=== PATIENT | male | born 1970 | race Caucasian/White ===

== ENCOUNTER → 2018-09-25 12:43 | Outpatient (CLI) | payer BC, SELFPAY ==
--- NOTE | 2018-09-25 12:50 | XR_ITS ---
XR ankle LT min 3V HISTORY: ITS.REASON: Lt ankle pain ORDERING PHYSICIAN: Bonnie Garcia MD PATIENT AGE: 48 years Comparison: 04/15/2014 FINDINGS: No acute fracture or dislocation. No lytic or blastic change. There is normal mineralization.. The joint spaces are well-preserved. No significant degenerative/arthritic changes. No erosive changes evident. There is a small calcific density along the lateral aspect of the lower talus at the talocalcaneal junction on the mortise view. This was present on 04/15/2014 and could represent an old avulsion injury or an accessory ossification center. IMPRESSION: No change with no acute finding
== END ==
PROVIDERS: PCP Family Medicine; Visit Provider Orthopaedic Surgery
DX: M25.572 Pain in left ankle and joints of left foot (principal)
CPT/HCPCS: 73610

== ENCOUNTER 2018-09-25 14:25 | Outpatient (RCR) | payer BC, SELFPAY | END 2018-09-25 14:30 | disposition home or self-care (01) | LOC: PT 14:25 | PROVIDERS: Visit Provider Orthopaedic Surgery | DX: M25.572 Pain in left ankle and joints of left foot (principal) ==

== ENCOUNTER → 2018-12-24 13:46 | Outpatient (POV) | payer BC, SELFPAY | PROVIDERS: Visit Provider Dermatology | DX: Z00.00 Encounter for general adult medical examination without abnormal findings (principal) ==

== ENCOUNTER → 2019-03-05 12:53 | Outpatient (CLI) | payer BC, SELFPAY ==
--- NOTE | 2019-03-05 12:55 | MR_ITS ---
MR knee RT wo con HISTORY: Twisting injury with pain and popping always ITS.REASON: right knee pain ORDERING PHYSICIAN: Bonnie Garcia MD PATIENT AGE: 48 years Comparison: 02/13/2019 TECHNIQUE: Standard multiplanar multiecho sequences are performed without contrast. FINDINGS: Posterior cruciate ligament is intact. There is sparsity of the fibers of the ACL with some increased T2 signal which could represent sprain of the ACL. There is slight edema involving the medial collateral ligament suggesting a grade 1 sprain. No evidence of medial or lateral collateral ligament tear. The patellar tendon and quadriceps tendon are intact. No meniscal tear.. The patellar cartilage is well preserved. There is decreased T1 and increased T2 signal involving the proximal aspect of the tibia medially and posteriorly as well as the anterior aspect of the proximal tibia medially consistent with bone marrow edema/bone bruise. Along the proximal tibia medially in the subarticular region there is a rounded area measuring 8 mm of decreased T1 signal with slight increased T2 signal at this region. This is well-circumscribed and may represent an area of osteochondrosis. Small area of bone marrow edema involves the medial femoral condyle centrally fairly well-circumscribed and may represent an additional area of osteochondrosis. There are mild osteoarthritic changes of the knee including the medial and lateral compartments and patellofemoral joint. There is also a small knee joint effusion. IMPRESSION: 1. Grade 1 sprain of the medial collateral ligament. 2. Sparsity of the fibers of the ACL with some increased T2 signal which may represent a sprain of the ACL. A complete tear is not present. 3. Contusion involves the proximal tibia medially and posteriorly. 4. Small areas of abnormal signal intensity of the medial femoral condyle and the medial aspect of the proximal tibia anteriorly suggesting areas of osteochondrosis. 5. Osteoarthritis with knee joint effusion
== END ==
PROVIDERS: PCP Family Medicine; Visit Provider Orthopaedic Surgery
DX: M25.562 Pain in left knee (principal)
CPT/HCPCS: 73721

== ENCOUNTER → 2019-04-30 06:57 | Outpatient (CLI) | payer BC, SELFPAY ==
[2019-04-30 09:43] LABS: Alanine Aminotransferase 32 U/L (12-78); Albumin/Globulin Ratio 1.5 (1.1-1.8); Alkaline Phosphatase 59 U/L (46-116); Anion Gap 11.3 mEq/L (5-15); Aspartate Amino Transferase 20 U/L (15-37); Bilirubin,Total 0.6 mg/dL (0.2-1.0); Blood Urea Nitrogen 16 mg/dL (7-18); Calcium 9.3 mg/dL (8.5-10.1); Carbon Dioxide 29 mmol/L (21.0-32.0); Chloride 104 mmol/L (98-107); Chol/HDL Ratio 3.6 (1-3.5); Cholesterol 191 mg/dL (140-200); Creatinine,Serum 1.18 mg/dL (0.70-1.30); Estimated Glomerular Filt Rate 66 ml/min (>60); GFR (African American) 80 ML/MIN (>60); Globulin 2.7 gm/dl (1.3-3.2); Glucose 101 mg/dL (74-106); HDL Cholesterol 53 mg/dL (27-67); LDL Cholesterol 120 mg/dL (0-130); Potassium 4.3 mmoL/L (3.5-5.1); Prostate Specific Ag Screen 0.6 ng/mL (0.0-4.0); Sodium 140 mmol/L (136-145); Total Protein,Serum 6.7 gm/dL (6.4-8.2); Triglycerides 91 mg/dL (30-200); VLDL Cholesterol 18 mg/dL (0-40)
== END ==
PROVIDERS: Visit Provider Family Medicine
DX: E78.5 Hyperlipidemia, unspecified (principal); I10 Essential (primary) hypertension; Z12.5 Encounter for screening for malignant neoplasm of prostate
CPT/HCPCS: 36415; 80053; 80061; G0103

== ENCOUNTER → 2019-07-03 11:35 | Outpatient (CLI) | payer BC, SELFPAY ==
[2019-07-03 15:25] LABS: Alanine Aminotransferase 32 U/L (12-78); Alkaline Phosphatase 69 U/L (46-116); Aspartate Amino Transferase 20 U/L (15-37); Bilirubin,Direct 0.1 mg/dL (0.0-0.2); Bilirubin,Indirect 0.4 mg/dL (0.0-0.9); Bilirubin,Total 0.5 mg/dL (0.2-1.0)
== END ==
PROVIDERS: Visit Provider Physician Assistant
DX: R74.8 Abnormal levels of other serum enzymes (principal)
CPT/HCPCS: 36415; 80076

== ENCOUNTER → 2020-03-12 13:30 | Outpatient (CLI) | payer BC, SELFPAY ==
--- NOTE | 2020-03-12 13:31 | XR_ITS ---
PROCEDURE: XR FOREARM RT 2V CLINICAL INDICATION: Forarm pain COMPARISON: No exams were available for comparison FINDINGS: No fracture or dislocation. No lytic or blastic change. There is normal mineralization. The joint spaces are well-preserved. No significant degenerative/arthritic changes. No erosive changes evident. Other findings:None. IMPRESSION: No acute findings. Dictated by: Adam Morales MD 03/12/2020 14:32 Electronically signed by Adam Morales MD in [place] 03/12/2020 14:32
--- NOTE | 2020-03-12 13:31 | XR_ITS ---
PROCEDURE: XR ELBOW RT MIN 3V CLINICAL INDICATION: elbow pain COMPARISON: No exams were available for comparison FINDINGS: No fracture or dislocation. No lytic or blastic change. There is normal mineralization. There are mild osteoarthritic changes at the proximal radial ulnar joint with osteophytes noted at this region. There is also minimal osteoarthritic changes of the radial head/capitellum junction. Other findings:None. IMPRESSION: Mild osteoarthritic changes Dictated by: Adam Morales MD 03/12/2020 14:36 Electronically signed by Adam Morales MD in [place] 03/12/2020 14:36
== END ==
PROVIDERS: PCP Family Medicine; Visit Provider Orthopaedic Surgery
DX: M25.521 Pain in right elbow (principal); M79.631 Pain in right forearm
CPT/HCPCS: 73080; 73090

== ENCOUNTER → 2020-08-17 14:21 | Outpatient (POV) | payer BC, SELFPAY | PROVIDERS: Visit Provider Dermatology | DX: Z00.00 Encounter for general adult medical examination without abnormal findings (principal) ==

== ENCOUNTER → 2020-10-07 17:50 | Outpatient (CLI) | payer BC, SELFPAY | PROVIDERS: PCP Family Medicine; Visit Provider Family Medicine | DX: Z20.822 Contact with and (suspected) exposure to COVID-19 (principal) | CPT/HCPCS: U0003 ==

== ENCOUNTER 2021-01-12 09:00 | Emergency (ER) | payer BC, SELFPAY ==
[2021-01-12 09:09] VITALS: BP 137/89; PULSE 84; RESP 19; TEMP 37; O2SAT 100; BMI 27.8
[2021-01-12 09:18] VITALS: BP 137/89; PULSE 86; RESP 19; TEMP 37; O2SAT 100
--- NOTE | 2021-01-12 09:38 | HMH.EDUTC ---
[facility] Disposition Clinical Impression: Viral syndrome Disposition: Home, Self-Care Condition on Discharge: Good Instructions: Preventing the Spread of Coronavirus Discharge Instructions Additional Instructions: Drink plenty of fluids. Take tylenol for pain or fever. Return if you begin to have difficulty breathing. Follow up with your regular doctor. GO TO THE ER FOR ANY WORSENING SYMPTOMS Prescriptions: Ondansetron [Zofran 4mg ODT] 4 mg PO Q8HP PRN #20 tab.rapdis PRN Reason: Nausea Transmission Status: Received by [facility] Referrals: Steve Pepper MD [Primary Care Provider] - Time of Disposition: 09:39 Medical Decision Making - Medical Records Medical records reviewed: No: I reviewed the patient's medical records. - Nick Inquiry Pt receiving controlled substance: No Vital Signs: 01/12/21 09:09 01/12/21 09:18 Temperature 98.6 F 98.6 F Temperature Source Oral Pulse Rate 86 Pulse Rate [Left] 84 Respiratory Rate 19 19 Blood Pressure 137/89 Blood Pressure [Right Arm] 137/89 Blood Pressure Mean [Right Arm] 105 02 Sat by Pulse Oximetry 100 Oxygen Delivery Method Room Air [facility] HPI - General Stated complaint: covid test, symptoms Time Seen by Provider: 01/12/21 09:25 Mode of Arrival: Ambulatory Source of Information: Patient Limitations: No Limitations Description of Symptoms (Recalled from Triage Doc. by RN): Covid test-chills, headache, bodyaches HEENT Symptoms (Recalled from RN notes): No Resp Symptoms (Recalled from RN notes): Yes Skin Symptoms (Recalled from RN notes): No MS Symptoms (Recalled from RN notes): No Functional Status (Recalled from RN notes): wnl - History of Present Illness Provider Complaint: He states that he has had chilling and body aches for the past 1 day. He wants to be tested for covid-19. - Related Data Home Medications Medication Instructions Recorded Confirmed losartan 25 mg tablet 25 mg PO ONCE 03/17/18 03/12/20 Previous Rx's Medication Instructions Recorded Ondansetron [Zofran 4mg ODT] 4 mg PO Q8HP PRN #20 tab.rapdis 01/12/21 Allergies Allergy/AdvReac Type Severity Reaction Status Date / Time No Known Allergies Allergy Verified 01/12/21 09:18 - Worker's Comp Is this a Worker's Comp case?: No H History - Hepatitis A Screen Drug use history?: No High risk sexual behaviors?: No History of sexually transmitted infection?: No Currently employed?: No Childcare worker?: No Do you have indoor plumbing?: Yes Do you have electricity?: Yes Attestation statement:: This patient has been screened for Hepatitis A risk factors. I have reviewed the patient's past medical history: Yes Medical History: Reports:: Hypertension Other Surgeries: Yes: Other Amputation: No Fractures: No Comment: ankle reconstruction - Social History Smoking Status: Never smoker Tobacco Type: cigarettes Alcohol Intake: never Alcohol Intake Frequency:: holidays/special occasions only Occupational Status: other Family Hx:: No significant family history ROS Obtained: Yes All systems reviewed & no additional complaints - Constitutional Constitutional: Reports as per HPI - Eyes Eyes: Denies eye discharge - ENT Ears, Nose, Mouth, and Throat: Reports as per HPI - Cardiovascular Cardiovascular: Denies chest pain - Respiratory Respiratory: Denies chest congestion, Reports cough, Denies dyspnea, Denies stridor, Denies wheezing Physical Exam - General General appearance: alert, in no apparent distress - Head Head exam: atraumatic, normocephalic, normal inspection - Eye Eye exam: Present: normal appearance, PERRL, EOMI - ENT ENT exam: Present: normal exam, normal oropharynx, mucous membranes moist, TM's normal bilaterally, normal external ear exam - Neck Neck exam: Present: normal inspection, full ROM, trachea midline. Absent: meningismus, lymphadenopathy - Chest Chest inspection: P
== END 2021-01-12 09:40 | disposition home or self-care (01) ==
PROVIDERS: Emergency Provider Nurse Practitioner Family; PCP Family Medicine
DX: Z20.822 Contact with and (suspected) exposure to COVID-19 (principal); B34.9 Viral infection, unspecified; I10 Essential (primary) hypertension
CPT/HCPCS: 99202; G0463; U0003

== ENCOUNTER → 2021-06-14 08:19 | Outpatient (CLI) | payer BC, SELFPAY | PROVIDERS: PCP Family Medicine; Visit Provider Nurse Practitioner | DX: Z20.822 Contact with and (suspected) exposure to COVID-19 (principal) | CPT/HCPCS: C9803; U0003; U0005 ==

== ENCOUNTER → 2021-06-24 07:18 | Outpatient (CLI) | payer BC, SELFPAY ==
[2021-06-24 07:32] LABS: Basophils % 0.8 % (0.1-2.0); Eosinophils # 0.4 K/mm3 (0.0-0.4); Eosinophils % 8.2 % (0.1-12.0); Hematocrit 46.1 % (42.0-52.0); Hemoglobin 15.4 g/dL (14.1-18.0); Lymphocytes # 1.5 K/mm3 (0.7-4.5); Lymphocytes % 32.3 % (10-50); Mean Corpuscular HGB Conc 33.3 g/dL (31.8-35.4); Mean Corpuscular Hemoglobin 32.2 pg (27.0-31.2); Mean Corpuscular Volume 96.5 fl (80-94); Monocytes # 0.3 K/mm3 (0.1-1.0); Monocytes % 6.3 % (1.7-9.3); Neutrophils # 2.4 K/mm3 (1.8-7.8); Neutrophils % 52.4 % (37.0-80.0); Platelet Count 310 K/mm3 (142-424); Red Blood Count 4.78 M/mm3 (4.60-6.20); Red Cell Distribution Width 12.4 % (11.5-17.5); White Blood Count 4.6 K/mm3 (4.8-10.8)
[2021-06-24 07:53] LABS: Chloride 104 mmol/L (98-107); Potassium 4.4 mmoL/L (3.5-5.1); Sodium 139 mmol/L (136-145)
[2021-06-24 07:56] LABS: Alanine Aminotransferase 25 U/L (12-78); Albumin Level 4.3 g/dl (3.5-5.0); Albumin/Globulin Ratio 1.7 (1.1-1.8); Alkaline Phosphatase 53 U/L (38-126); Anion Gap 11.4 mEq/L (5-15); Aspartate Amino Transferase 33 U/L (17-59); Bilirubin,Total 0.4 mg/dl (0.2-1.3); Blood Urea Nitrogen 17 mg/dl (9-20); Calcium 9.3 mg/dl (8.4-10.2); Carbon Dioxide 28 mmol/L (22.0-30.0); Chol/HDL Ratio 3.3 (1-3.5); Cholesterol 213 mg/dl (140-200); Estimated Glomerular Filt Rate 90 ml/min (>60); GFR (African American) 109 ML/MIN (>60); Globulin 2.5 g/dL (1.3-3.2); Glucose 114 mg/dl (74-100); HDL Cholesterol 64 mg/dl (40-60); Total Protein,Serum 6.8 g/dl (6.3-8.2); Triglycerides 72 mg/dl (30-150); VLDL Cholesterol 14 mg/dL (0-40)
[2021-06-24 08:07] LABS: Direct LDL Cholesterol 109.67 mg/dL (100-129)
== END ==
PROVIDERS: Visit Provider Family Medicine
DX: I10 Essential (primary) hypertension (principal); E78.5 Hyperlipidemia, unspecified
CPT/HCPCS: 36415; 80053; 80061; 85025

== ENCOUNTER → 2021-08-30 13:35 | Outpatient (CLI) | payer BC, SELFPAY | PROVIDERS: PCP Family Medicine; Visit Provider Nurse Practitioner | DX: Z20.822 Contact with and (suspected) exposure to COVID-19 (principal) | CPT/HCPCS: C9803; U0003; U0005 ==

== ENCOUNTER → 2021-10-19 07:59 | Outpatient (CLI) | payer BC, SELFPAY ==
[2021-10-20 06:46] LABS: Covid-19 Nasal PCR Sendout Lex NOT DETECTED
== END ==
PROVIDERS: PCP Family Medicine; Visit Provider Nurse Practitioner
DX: Z20.822 Contact with and (suspected) exposure to COVID-19 (principal)
CPT/HCPCS: C9803; U0004; U0005

== ENCOUNTER 2021-11-01 08:00 | Outpatient (RCR) | payer BC, SELFPAY | END 2021-11-01 08:05 | disposition home or self-care (01) | LOC: PT 08:00 | PROVIDERS: PCP Family Medicine; Visit Provider Orthopaedic Surgery Sports Medicine | DX: M19.021 Primary osteoarthritis, right elbow (principal) | CPT/HCPCS: 97035; 97110; 97140; 97163 ==

== ENCOUNTER → 2022-06-06 13:08 | Outpatient (POV) | payer BC, SELFPAY | PROVIDERS: Visit Provider Dermatology | DX: Z00.00 Encounter for general adult medical examination without abnormal findings (principal) ==

== ENCOUNTER → 2022-08-07 07:28 | Outpatient (CLI) | payer BC, SELFPAY ==
[2022-08-07 08:21] LABS: Basophils # 0.1 K/mm3 (0-0.2); Basophils % 1.2 % (0.1-2.0); Eosinophils # 0.5 K/mm3 (0.0-0.4); Eosinophils % 8.6 % (0.1-12.0); Hematocrit 46.7 % (42.0-52.0); Hemoglobin 15.3 g/dL (14.1-18.0); Lymphocytes # 1.6 K/mm3 (0.7-4.5); Lymphocytes % 31.3 % (10-50); Mean Corpuscular HGB Conc 32.9 g/dL (31.8-35.4); Mean Corpuscular Hemoglobin 31.3 pg (27.0-31.2); Mean Corpuscular Volume 95.1 fl (80-94); Mean Platelet Volume 7.8 fl (7.4-10.4); Monocytes # 0.3 K/mm3 (0.1-1.0); Monocytes % 5.2 % (1.7-9.3); Neutrophils # 2.8 K/mm3 (1.8-7.8); Neutrophils % 53.8 % (37.0-80.0); Platelet Count 307 K/mm3 (142-424); Red Cell Distribution Width 12.8 % (11.5-17.5); White Blood Count 5.2 K/mm3 (4.8-10.8)
[2022-08-07 09:33] LABS: Alanine Aminotransferase 27 U/L (12-78); Albumin Level 4.6 g/dl (3.5-5.0); Albumin/Globulin Ratio 1.9 (1.1-1.8); Alkaline Phosphatase 47 U/L (38-126); Anion Gap 9.8 mEq/L (5-15); Aspartate Amino Transferase 34 U/L (17-59); Bilirubin,Total 0.4 mg/dl (0.2-1.3); Blood Urea Nitrogen 32 mg/dl (9-20); Calcium 9.7 mg/dl (8.4-10.2); Carbon Dioxide 29 mmol/L (22.0-30.0); Chloride 103 mmol/L (98-107); Chol/HDL Ratio 3.6 (1-3.5); Cholesterol 222 mg/dl (140-200); Estimated Glomerular Filt Rate 64 ml/min (>60); GFR (African American) 78 ML/MIN (>60); Globulin 2.4 g/dL (1.3-3.2); Glucose 103 mg/dl (74-100); HDL Cholesterol 62 mg/dl (40-60); Potassium 4.8 mmoL/L (3.5-5.1); Sodium 137 mmol/L (136-145); Triglycerides 75 mg/dl (30-150); VLDL Cholesterol 15 mg/dL (0-40)
[2022-08-07 09:44] LABS: Direct LDL Cholesterol 131.14 mg/dL (100-129)
[2022-08-07 10:04] LABS: Prostate Specific Ag Screen 0.7 ng/ml (0.0-4.0)
== END ==
PROVIDERS: PCP Family Medicine; Visit Provider Family Medicine
DX: I10 Essential (primary) hypertension (principal); E78.5 Hyperlipidemia, unspecified; Z12.5 Encounter for screening for malignant neoplasm of prostate
CPT/HCPCS: 36415; 80053; 80061; 85025; G0103

== ENCOUNTER → 2022-11-06 15:38 | Outpatient (CLI) | payer BC, SELFPAY ==
--- NOTE | 2022-11-06 15:43 | XR_ITS ---
PROCEDURE INFORMATION: Exam: XR Left Foot Complete; Alignment Exam date and time: 11/06/2022 4:11 PM Age: 52 years old Clinical indication: Pain; Left; Prior surgery; Surgery date: 6+ months; Surgery type: Foot and ankle surgery 2014; Additional info: Ankle pain TECHNIQUE: Imaging protocol: Radiologic exam of the left foot. Views: 3 or more views. COMPARISON: CR ANKCMLT XR ankle LT min 3V 09/25/2018 1:13 PM FINDINGS: Bones/joints: No acute fracture or dislocation. Joint spaces fairly well preserved. No erosive changes. Soft tissues: Normal. IMPRESSION: No acute osseous abnormality.
--- NOTE | 2022-11-06 15:43 | XR_ITS ---
PROCEDURE INFORMATION: Exam: XR Left Ankle Exam date and time: 11/06/2022 4:11 PM Age: 52 years old Clinical indication: Pain; Left; Prior surgery; Surgery date: 6+ months; Surgery type: Foot and ankle surgery 2014; Additional info: Ankle pain TECHNIQUE: Imaging protocol: Radiologic exam of the left ankle. Views: 3 or more views. COMPARISON: CR ANKCMLT XR ankle LT min 3V 09/25/2018 1:13 PM FINDINGS: Bones/joints: No acute fracture or malalignment. Ankle mortise is intact. Joint spaces are preserved. No erosive changes. Small plantar calcaneal enthesophyte. Soft tissues: Unremarkable. IMPRESSION: No acute osseous abnormality.
== END ==
PROVIDERS: PCP Family Medicine; Visit Provider Podiatrist
DX: M25.572 Pain in left ankle and joints of left foot (principal)
CPT/HCPCS: 73610; 73630

== ENCOUNTER → 2023-06-27 08:47 | Outpatient (CLI) | payer BC, SELFPAY ==
[2023-06-27 09:18] LABS: Basophils % 0.7 % (0.1-2.0); Eosinophils # 0.3 K/mm3 (0.0-0.4); Eosinophils % 7.2 % (0.1-12.0); Hemoglobin 15.2 g/dL (14.1-18.0); Lymphocytes # 1.6 K/mm3 (0.7-4.5); Mean Corpuscular HGB Conc 35.2 g/dL (31.8-35.4); Mean Corpuscular Volume 96.5 fl (80-94); Mean Platelet Volume 7.8 fl (7.4-10.4); Monocytes # 0.2 K/mm3 (0.1-1.0); Monocytes % 4.9 % (1.7-9.3); Neutrophils # 2.5 K/mm3 (1.8-7.8); Neutrophils % 53.1 % (37.0-80.0); Platelet Count 250 K/mm3 (142-424); Red Blood Count 4.45 M/mm3 (4.60-6.20); Red Cell Distribution Width 12.9 % (11.5-17.5); White Blood Count 4.7 K/mm3 (4.8-10.8)
[2023-06-27 09:42] LABS: Alanine Aminotransferase 28 U/L (12-78); Albumin Level 4.6 g/dl (3.5-5.0); Albumin/Globulin Ratio 1.8 (1.1-1.8); Alkaline Phosphatase 41 U/L (38-126); Anion Gap 13.9 mEq/L (5-15); Aspartate Amino Transferase 35 U/L (17-59); Bilirubin,Total 0.6 mg/dl (0.2-1.3); Blood Urea Nitrogen 26 mg/dl (9-20); Calcium 9.4 mg/dl (8.4-10.2); Carbon Dioxide 26 mmol/L (22.0-30.0); Chloride 103 mmol/L (98-107); Chol/HDL Ratio 2.9 (1-3.5); Cholesterol 224 mg/dl (140-200); Estimated Glomerular Filt Rate 64 ml/min (>60); GFR (African American) 78 ML/MIN (>60); Globulin 2.5 g/dL (1.3-3.2); Glucose 107 mg/dl (74-100); HDL Cholesterol 77 mg/dl (40-60); Potassium 4.9 mmoL/L (3.5-5.1); Sodium 138 mmol/L (136-145); Total Protein,Serum 7.1 g/dl (6.3-8.2); Triglycerides 79 mg/dl (30-150); VLDL Cholesterol 16 mg/dL (0-40)
[2023-06-27 09:53] LABS: Direct LDL Cholesterol 115.18 mg/dL (100-129)
== END ==
PROVIDERS: PCP Family Medicine; Visit Provider Family Medicine
DX: I10 Essential (primary) hypertension (principal); E78.5 Hyperlipidemia, unspecified
CPT/HCPCS: 36415; 80053; 80061; 85025

== ENCOUNTER 2023-12-11 14:53 | Outpatient (POV) | payer BC, SELFPAY | END 2023-12-11 23:59 | disposition home or self-care (01) | LOC: SC 14:53 | PROVIDERS: PCP Family Medicine; Visit Provider Dermatology | DX: Z00.00 Encounter for general adult medical examination without abnormal findings (principal) ==

== ENCOUNTER 2024-04-21 11:04 | Outpatient (CLI) | payer OTHER, SELFPAY ==
--- NOTE | 2024-04-21 11:10 | XR_ITS ---
FINAL REPORT CLINICAL HISTORY: ARTHRITIS - surgery on elbow x 2 years ago -- patient unable to bend elbow any further than visualized on lateral view. FINDINGS: 2 views of the right elbow were obtained. There is no acute fracture or dislocation. There is moderate joint space narrowing of the medial and lateral joint spaces. There are mild hypertrophic changes of the medial joint margin. There is no acute fracture or dislocation. Soft tissues are unremarkable. IMPRESSION: Degenerative changes without acute bony abnormality. Reviewed, Interpreted and Dictated by Giuseppe Boyce MD Transcribed by Carrie Kumar Authenticated and [facility]
== END 2024-04-21 23:59 | disposition home or self-care (01) ==
LOC: RAD 11:06
PROVIDERS: PCP Family Medicine; Visit Provider Chiropractor
DX: M13.80 Other specified arthritis, unspecified site (principal)
CPT/HCPCS: 73070

== ENCOUNTER 2024-08-18 07:22 | Outpatient (CLI) | payer BC, SELFPAY ==
[2024-08-18 07:49] LABS: Basophils # 0.1 K/mm3 (0-0.2); Basophils % 1.4 % (0.1-2.0); Eosinophils # 0.3 K/mm3 (0.0-0.4); Eosinophils % 6.5 % (0.1-12.0); Hematocrit 44.9 % (42.0-52.0); Hemoglobin 15.5 g/dL (14.1-18.0); Lymphocytes # 1.9 K/mm3 (0.7-4.5); Lymphocytes % 37.6 % (10-50); Mean Corpuscular HGB Conc 34.6 g/dL (31.8-35.4); Mean Corpuscular Hemoglobin 33.2 pg (27.0-31.2); Mean Corpuscular Volume 96.1 fl (80-94); Mean Platelet Volume 7.4 fl (7.4-10.4); Monocytes # 0.4 K/mm3 (0.1-1.0); Monocytes % 8.6 % (1.7-9.3); Neutrophils # 2.3 K/mm3 (1.8-7.8); Platelet Count 275 K/mm3 (142-424); Red Blood Count 4.67 M/mm3 (4.60-6.20); Red Cell Distribution Width 12.9 % (11.5-17.5); White Blood Count 4.9 K/mm3 (4.8-10.8)
[2024-08-18 08:23] LABS: Albumin Level 4.7 g/dl (3.5-5.0); Chloride 104 mmol/L (98-107); Sodium 134 mmol/L (136-145)
[2024-08-18 08:24] LABS: Potassium 4.4 mmoL/L (3.5-5.1)
[2024-08-18 08:26] LABS: Alanine Aminotransferase 26 U/L (12-78); Anion Gap 5.4 mEq/L (5-15); Aspartate Amino Transferase 34 U/L (17-59); Blood Urea Nitrogen 26 mg/dl (9-20); Carbon Dioxide 29 mmol/L (22.0-30.0); Estimated Glomerular Filt Rate 64 ml/min (>60); GFR (African American) 77 ML/MIN (>60)
[2024-08-18 08:27] LABS: Albumin/Globulin Ratio 2.2 (1.1-1.8); Alkaline Phosphatase 41 U/L (38-126); Bilirubin,Total 0.6 mg/dl (0.2-1.3); Calcium 9.6 mg/dl (8.4-10.2); Cholesterol 236 mg/dl (140-200); Globulin 2.1 g/dL (1.3-3.2); Glucose 105 mg/dl (74-100); HDL Cholesterol 78 mg/dl (40-60); Total Protein,Serum 6.8 g/dl (6.3-8.2); Triglycerides 123 mg/dl (30-150); VLDL Cholesterol 25 mg/dL (0-40)
[2024-08-18 08:38] LABS: Direct LDL Cholesterol 113.78 mg/dL (100-129)
[2024-08-18 10:12] LABS: Prostate Specific Ag Screen 0.8 ng/ml (0.0-4.0)
[2024-08-29 19:40] LABS: Testosterone, Total, LC/MS 786 ng/dL (.)
== END 2024-08-18 23:59 | disposition home or self-care (01) ==
PROVIDERS: PCP Family Medicine; Visit Provider Family Medicine
DX: E78.5 Hyperlipidemia, unspecified (principal); Z12.5 Encounter for screening for malignant neoplasm of prostate; I10 Essential (primary) hypertension
CPT/HCPCS: 36415; 80053; 80061; 84403; 85025; G0103

== ENCOUNTER 2024-10-08 06:56 | Outpatient (CLI) | payer SELFPAY ==
--- NOTE | 2024-10-08 07:04 | CT_ITS ---
APPROVED REPORT Forcer Maker: CLINICAL INDICATION Risk stratification TECHNIQUE Image Acquisition: A 128 slice MDCT scanner (MemfoACTa View) was used for data acquisition. A noncontrast coronary calcium scan was performed. A CT attenuation threshold of 130 Hounsfield units (HU) was used for the detection of calcium in contiguous voxels of 1 sq mm in area to be counted as individual lesions. A tube voltage of 120 KVp was used. The patient received no medications prior to the coronary calcium CT. Image Reconstruction Transaxial images were reconstructed at 0.67 mm slide thickness. Data was reviewed interactively on an advanced workstation capable of 2 and 3-dimensional displays in all conventional reconstruction formats, including multiplanar reformations, maximum intensity projections, curved multiplanar reformations, and volume rendered reconstructions. When applicable, selected routine images describing the relevant coronary anatomy and pathology were saved and sent to PACS. Complications None Technical Quality Overall image quality was good. Total DLP (Dose-Length Product) is 161.9 mGy-cm. The reported value represents the total of one or more individual components during the CT acquisition of this date and at this time, and as such, the same value may appear in more than one CT report depending on the interpreting/reporting physicians. COMPARISON None FINDINGS CT Coronary Calcium Scoring LMA (Left Main Artery) = 0 LAD (Left Anterior Descending) = 32 LCX (Left Coronary Circumflex) = 0 RCA (Right Coronary Artery) = 0 Total Calcium Score = 32 using the AJ-130 method. There is no identifiable calcification in the aortic valve, mitral annulus or mitral valve, pericardium, or myocardium. IMPRESSION -Coronary artery calcification is present. -Total Calcium Score (Agatston Score) = 32 using the AJ-130 method. -The observed calcium score of 32 is at 73rd percentile for subjects of the same age, sex, and race/ethnicity. The interpretation of the calcium heart score is based on the following continuum*: 0 = no calcified plaque detected (risk of coronary artery disease is very low ??? less than 5%) 1-10 = calcium detected in extremely minimal levels (risk of coronary diseases is still low ??? less than 10%) 11-100 = mild levels of plaque detected with certainty (mild or minimal narrowing of heart arteries is likely) 101-400 = definite,at least moderate levels of plaque detected (relatively high risk of a heart attack within 3-5 years) >401-999 = extensive levels of plaque detected (high risk of heart attack, high levels of vascular disease are present, high likelihood of at least one significant coronary narrowing) *The calcium heart score quantifies the burden of coronary calcification/plaque in the coronary arteries. The calcium heart score does not evaluate the presence or the burden of non-calcified (i.e. soft) plaque. The coronary and cardiac findings of this Coronary Calcium CT were reviewed, reported, and signed by Ortiz Silva MD (Legal Billing Coordinator). Conclusion Electronically signed by : Shira Silva MD 10/08/2024 11:19:06
== END 2024-10-08 23:59 | disposition home or self-care (01) ==
LOC: RAD 06:57
PROVIDERS: PCP Family Medicine; Visit Provider Family Medicine
DX: I25.10 Atherosclerotic heart disease of native coronary artery without angina pectoris (principal); Z82.49 Family history of ischemic heart disease and other diseases of the circulatory system
CPT/HCPCS: 75571

== ENCOUNTER 2025-08-19 07:45 | Outpatient (CLI) | payer BC, SELFPAY ==
--- OUTSIDE RECORDS SUMMARY | 2024-07-01 08:45 | XMS_ITS ---
Author Organization [facility] Address [address] [place] [address] [address] [facility] [address] [place] [id number] Care Team Providers Care Medical Officer Psychiatry Name Role Phone Kelechi Preciado Primary Care Provider [phone] Amy Beasley [phone] REASON FOR VISIT check up Encounters Encounter Location Date Provider Diagnosis [facility] [address] [facility] [address] [facility] [address] [place] [id number] 07/01/2024 Amy Pepper Plan Of Treatment Next Appt Details Provider Name:Amy Vital, 08/20/2025 11:30:00 AM, [address] [facility] [address] [facility], [address], [place], [id number], Progress Notes * Adeel CARLSONnDOB:1969 (55 yo M)Acc No.[id number]:07/01/2024 Progress Notes Patient: Adeel CAMARENA Blaise Provider: Amy Pepper M.D. :1970 A ge:53 Y S ex:Male Date:07/01/2024 Address:[address] [place] [id number] Pcp:Kelechi Preciado Subjective: * Chief Complaints: * 1 . Check up. * Medical History: Objective: * Vitals: Assessment: Plan: * Treatment: * Images: Billing Information: * Visit Code: * Procedure Codes: * Electronic signature of Amy Pepper MD on 08/19/2025 at 07:48 AM EST Sign off status: Pending * Provider: Amy Pepper M.D. Date: 1 Generated for Olivia braga/Myra/Javier on: 1 10/20/2024 07:48 AM EST
--- OUTSIDE RECORDS SUMMARY | 2024-08-19 06:15 | XMS_ITS ---
[facility] Address [facility] [place] [id number] Care Team Providers Care Dining Room Maid Name Role Phone [place], Kelechi Primary Care Provider [phone] Amy Beasley [phone] Allergies No Known Allergies REASON FOR VISIT check up Medications Medication SIG (Take, Route, Frequency, Duration) Notes Start Date End Date Status Losartan Potassium 25 mg TAKE ONE TABLET BY MOUTH EVERY DAY; Duration: 90 Active Aspirin Adult Low Strength 81 MG 1 tab(s) orally once a day Not-Taking Vital Signs Blood pressure systolic 126 mm Hg 08/19/20 24 Blood pressure diastolic 78 mm Hg 024 Heart Rate 70 /min 08/19/2024 Height 71.50 in 08/19/2024 Weight 204.4 lbs 08/19/2024 BMI 28.11 kg/m2 08/19/2024 Encounters Encounter Location Date Provider Diagnosis [facility] [address] [place] [address] [place] [id number] 08/19/2024 Amy Pepper Essential hypertensi on I10 ; Dyslipidemia E78.5 and Fatigue R53.83 Assessments Encounter Date Diagnosis (ICD Code) Assessment Notes Treatment Notes Treatment Clinical Notes Section Notes 08/19/2024 Essential hypertension (ICD-10 - I10) 08/19/2024 Dyslipidemia (ICD-10 - E78.5) 08/19/2024 Fatigue (ICD-10 - R53.83) Awaiting results of testosterone Plan Of Treatment Medication Medication Name Sig Start Date Stop Date Notes Losartan Potassium 25 mg TAKE ONE TABLET BY MOUTH EVERY DAY; Duration: 90 Treatment Notes Assessment Notes Fatigue Awaiting results of testosterone Next Appt Details Follow Up: 6 Months, Reason: Provider Name:Amy Billings et, 08/20/2025 11:30:00 AM, [address], [address], [place], [place], [phone], Progress Notes * Adeel CARLSONOB:1969 (55 yo M)Acc No.[id number]:08/19/2024 Progress Notes Patient: Adeel CAMARENA Provider: Amy Pepper M.D. :1970 A ge:54 Y S ex:Male Date:08/19/2024 Address:[address] [place] [address] [place] [id number] Pcp:Kelechi Preciado Subjective: * Chief Complaints: * 1 . Check up. * HPI: C ardiology: Comes in for follow-up on his hypertension. He had recent labs for review. Testosterone levels ordered because of recent fatigue and results are pending. Blood pressure checks at home have been consistently normal. K cristofer/Nando: He has been following with [facility] for his chronic knee pain and recently underwent gel injections. He has not seen much benefit as well. * ROS: D ERMATOLOGY: no R yazmin. n o H alvaro. G ASTROENTEROLOGY: no N ausea. n o V omiting. n o D iarrhea.? U ROLOGY: no D ifficulty urinating. n o B lood in urine. * Medical History: H BP. * Surgical History: A ppendectomy 2003, Right Elbow Surgery 10/2021. * Hospitalization/Major Diagno stic Procedure: s ee above . * Family History: F ather: alive, [place], diagnosed with Hypertension, Heart Disease. M other: alive, diagnosed with Hypertension. 1 brother(s) , 1 sister(s) . 3 son(s) . . * Social History: C URRENT TOBACCO USE: No . C affeine: yes, frequency: coffee. Home smoke detector use: yes. Past smoking status: no, Smoking status: Does not smoke. Alcohol: Yes, Type: , Frequency: on occasion ,Years: , Determination:. Travel ouside [place]: yes. * Medications: T aking Losartan Potassium 25 mg Tablet TAKE ONE TABLET BY MOUTH EVERY DAY , Not- Taking Aspirin Adult Low Strength 81 MG Tablet Delayed Release 1 tab(s) orally once a day , Medication List reviewed and reconciled with the patient * Allergies: N .K.D.A. Objective: * Vitals: W t:204.4, Temp:98.4, BP:126/78, HR:70, Nurse:EVELINA, Ht: 71.50, BMI:28.11. * Examination: C ardiology: General Appearance: p leasant, NAD. H EENT: u nremarkable. C arotid upstroke: n ormal, no bruits. H eart sounds: R RR, normal S1, S2.?Murmur, click , gallop: n one. L ungs: c lear, no rales or wheezes. A bdomen: positive BS, soft, nontender. E xtremities: n o leg edema. N oted with small lipoma over thoracic spine and right lateral hip. * Physical Examination: L ABS: See labs r eviewed with patient, satisfactory. Assessment: * Assessment: 1. E ssential hypertension - I10 (Primary) 2 . D yslipidemia - E78.5 ? 3 . F atigue - R53.83 Plan: * Treatment: 2. F atigue Notes: Awaiting results of testosterone * Follow Up: 6 Months * Images: Billing Information: * Visit Code: 06747 Office Visit, Est Pt., Level 4. * Procedure Codes: * Electronic signature of Amy Pepper MD on 08/19/2025 at 07:48 AM EST Sign off status: Pending * Provider: Amy Pepper M.D. Date: 10/20/2023 Generated for Olivia braga/Myra/Javier on: 10/20/2024 07:48 AM EST History and Physical Notes * Physical Examination Category Sub-Category Detail Notes Section Note s LABS See labs reviewed with patient, [employer] factory Examination Category Sub-Category Detail Notes Category Not es Cardiology Lungs: clear, no rales or wheezes Noted with small lipoma over thoracic spine and right lateral hip HEENT: unremarkable Heart sounds: RRR, normal S1, S2 Abdomen: positive BS, soft, n ontender Carotid upstroke: normal, no bruits Extremities: no leg edema Murmur, click , gallop: none General Appearance: pleasant, NAD
--- OUTSIDE RECORDS SUMMARY | 2024-12-30 08:45 | XMS_ITS ---
Author Organization [facility] Address [address] [facility] [address] [place] [phone] Care Team Providers Care Rubber Liner Name Role Phone Kelechi Preciado Primary Care Provider [phone] Amy Beasley Unavailable [phone] Allergies No Known Allergies REASON FOR VISIT shot in knee Medications Medication SIG (Take, Route, Frequency, Duration) Notes Start Date End Date Status Losartan Potassium 50 MG 1 tablet Orally Once a day; Duration: 90 days 11/14/2024 Active Aspirin Adult Low Strength 81 MG 1 tab(s) orally once a day Not-Taking methylPREDNISolone 4 MG as directed Orally 025 Active Meloxicam 15 MG 1 tablet Orally Once a day; Duration: 30 day(s) 12/30/2024 Active Problems Problem Type SNOMED Code ICD Code Onset Dates Problem Status W/U Status Risk Notes Problem Osteoarthritis of knee (931801558) Primary osteoarthritis of left knee (M17.12) Active confirmed Vital Signs Blood pressure systolic 124 mm Hg 12/31/19 25 Blood pressure diastolic 68 mm Hg 025 Heart Rate 79 /min 12/30/2024 Height 71.50 in 12/30/2024 Weight 205.6 lbs 12/30/2024 BMI 28.27 kg/m2 12/30/2024 Encounters Encounter Location Date Provider Diagnosis [facility] [address] [facility] [address] [place] [phone] 12/30/2024 Amy Pepper Primary osteoarthrit is of left knee M17.12 and BMI 28.0-28.9,adult Z68.28 Assessments Encounter Date Diagnosis (ICD Code) Assessment Notes Treatment Notes Treatment Clinical Notes Section Notes 12/30/2024 Primary osteoarthritis of left knee (ICD-10 - M17.12) Keep Ortho follow-up appointment as scheduled in 12/30/2024 BMI 28.0-28.9,adult (ICD-10 - Z68.28) Plan Of Treatment Medication Medication Name Sig Start Date Stop Date Notes methylPREDNISolone 4 MG as directed Orally 12/30/2024 Meloxicam 15 MG 1 tablet Orally Once a day; Duration: 30 day(s) 12/30/2024 Treatment Notes Assessment Notes Primary osteoarthritis of left knee Keep Ortho follow-up appointment as scheduled in February Next Appt Details Follow Up: prn, Reason: Provider Name:Amy Vital, 08/20/2025 11:30:00 AM, [address], [address] , [place], [place], [phone], Progress Notes * Adeel CARLSONEthanOB:1969 (55 yo M)Acc No.[id number]:12/30/2024 Progress Notes Patient: Adeel CAMARENA Provider: Amy Pepper M.D. :1970 A ge:54 Y S ex:Male Date:12/30/2024 Address:[address] [place] [address] [place] [id number] Pcp:Kelechi Preciado Subjective: * Chief Complaints: * 1 . Shot in knee. * HPI: K nee/Collier: Blaise is known to have bilateral knee arthritis and follows at [facility] with gel injections about every 6 months. He is scheduled again in February however over the weekend, he began having more severe pain in his left knee with no history of trauma. He did cut some wood yesterday and was kneeling and bending. He has had some mild swelling. He notes occasional catching. No locking. * ROS: D ERMATOLOGY: no R yazmin. [...] . * Family History: F ather: alive, [place], diagnosed with Hypertension, Heart Disease. M other: [...] yes. * Medications: T aking Losartan Potassium 50 MG Tablet 1 tablet Orally Once a day , Not-Taking Aspirin Adult Low Strength 81 MG Tablet Delayed Release 1 tab(s) orally once a day , Medication List reviewed and reconciled with the patient * Allergies: N .K.D.A. Objective: * Vitals: W t: 205.6, Temp: 98.5, BP: 124/68, HR: 79, Nurse: dillon, Ht: 71.50, BMI:28.27. * Examination: G eneral Examination: General Appearance: N AD. E xtremities: L eft knee is tender medially. No obvious effusion, redness, or warmth. No instability.. Assessment: * Assessment: 1. P rimary osteoarthritis of left knee - M17.12 (Primary) 2 . B [place] 28.0-28.9,adult - Z68.28 Plan: * Treatment: * Procedure Codes: 3 074F SYST BP LT 130 MM HG, 3078F DIAST BP < 80 MM HG * Follow Up: p rn * Images: Billing Information: * Visit Code: 03807 Office Visit, Est Pt., Level 3. * Procedure Codes: 3074F SYST BP LT 130 MM HG. 3078F DIAST BP < 80 MM HG. * Electronic signature of Amy Pepper MD on 08/19/2025 at 07:48 AM EST Sign off status: Pending * Provider: Amy Pepper M.D. Date: 12/30/2024 Generated for Olivia braga/Faxing/eTransmitting on: 1 10/20/2024 07:48 AM EST History and Physical Notes * Examination Category Sub-Category Detail Notes Category Not es General Examination Extremities: Left knee is tender medially. No obvious effusion, redness, or warmth. No instability. General Appearance: NAD
--- OUTSIDE RECORDS SUMMARY | 2025-07-07 10:20 | XMS_ITS ---
[facility] Address [address] [place] [address] 36 [facility] [address] [place] [id number] Care Team Providers Care Paint Process Engineer Name Role Phone IlanaNancyKelechi Primary Care Provider [phone] Amy Beasley [phone] REASON FOR VISIT Lab Order (08/17) Encounters Encounter Location Date Provider Diagnosis Chidi [address] [place] [address] 36 [facility] [address] [place] [id number] 07/07/2025 mAy Pepper Essential hypertensi on I10 ; Dyslipidemia E78.5 and Screening for prostate cancer Z12.5 Assessments Encounter Date Diagnosis (ICD Code) Assessment Notes Treatment Notes Treatment Clinical Notes Section Notes 07/07/2025 Essential hypertension (ICD-10 - I10) 07/07/2025 Dyslipidemia (ICD-10 - E78.5) 07/07/2025 Screening for prostate cancer (ICD-10 - Z12.5) Plan Of Treatment Pending Test Test Name Order Date H-CBC 07/07/2025 H-Lipid Panel 07/07/2025 H-CMP 07/07/2025 H-PSA 07/07/2025 Next Appt Details Provider Name:Amy Vital, 08/20/2025 11:30:00 AM, [address] [facility] 36 [facility], [address], [place], [id number], Progress Notes * Adeel CARLSONOB:1969 (55 yo M)Acc No.[id number]:07/07/2025 Patient: Adeel CAMARENA :1970 A ge:54 Y S ex:Male Address:[address] [place] [address] [place], [address] Subjective: * Chief Complaints: * L ab Order (08/17) * Medical History: * Surgical History: * Hospitalization/Major Diagno stic Procedure: * Medications: Objective: * Vitals: * Physical Examination: Assessment: * Assessment: 1. E ssential hypertension - I10 2 . D yslipidemia - E78.5 3 . S creening for prostate cancer - Z12.5 Plan: * Treatment: 2. D yslipidemia L AB: H-Lipid Panel 3. S creening for prostate cancer L AB: H-PSA * Procedure Codes: * true * Date: Generated for Olivia braga/Myra/Javier on: 10/20/2024 07:49 AM EST
--- OUTSIDE RECORDS SUMMARY | 2025-08-19 07:48 | XMS_ITS | Clinical Summary ---
Author Organization [facility] Address [address] [place] [address] Phone Care Team Providers Care New Vehicle Sales Consultant Name Role Phone Unavailable Primary Care Provider Unavailabl e Social History Tobacco Use Types Packs/Day Years Used Date Smoking Tobacco: Never Assessed Sex and Gender Information Value Date Recorded Sex Assigned at Not on file Legal Sex Male 4:50 PM EST Gender Identity Not on file Sexual Orientation Not on file Plan of Treatment Health Maintenance Due Date Last Done Comments Annual Wellness Exam 1975 DTaP/TDaP/Td (1 - Tdap) 1991 Hepatitis B Vaccine (1 of 3 - 19+ 3-dose series) 1991 Cologuard 2017 Colon Cancer Screening 2017 Colonoscopy 2017 FIT 2017 Sigmoidoscopy 2017 Virtual Colonography 2017 Pneumococcal Vaccine 50+ (1 of 1 - PCV) 2022 Zoster (1 of 2) 2022 COVID-19 Vaccine (1 - 2024-2 6 season) 2025 Influenza Vaccine (#1) 2025 Meningococcal B Vaccine Aged Out No l onger eligible based on patient's age to complete this topic Insurance
--- OUTSIDE RECORDS SUMMARY | 2025-08-19 07:49 | XMS_ITS | Patient Health Record ---
Author Organization [facility] Address [address] [place] [id number] Care Team Providers Care Milling Planer Operator Name Role Phone Kelechi Preciado Primary Care Provider Amy Pepper Gene Unavailable [phone] Allergies No Known Allergies Results Component Value Reference Range Notes CT Scan : Coronary w/o contr ast (calcium scoring) Reviewed date:10/09/2024 09:09:53 AM Interpretation: Performing Lab: Notes/Report: Reason For Referral No Information Medications Medication SIG (Take, Route, Frequency, Duration) Notes Start Date End Date Status Aspirin Adult Low Strength 81 MG 1 tab(s) orally once a day Not-Taking Losartan Potassium 50 MG 1 tablet Orally Once a day; Duration: 90 days Active methylPREDNISolone 4 MG as directed Orally 025 Active Meloxicam 15 MG 1 tablet Orally Once a day; Duration: 30 day(s) 12/30/2024 Active Immunizations Vaccine Route Administration Date Status Comme nts Tetanus Tdap-Adacel (over 7yrs) IM Intramuscular 01/31/2012 Administered Fluzone Quad (6months&older) IM Intramuscular 07/09/2020 Administered Fluzone Quad (6months&older) IM Intramuscular 06/24/2021 Administered Problems Problem Type SNOMED Code ICD Code Onset Dates Problem Status W/U Status Risk Notes Problem Essential hypertension (35667353) Essential hypertension (I10) Active confirmed Problem Osteoarthritis of knee (977411126) Primary osteoarthritis of both knees (M17.0) Active confirmed Problem Osteoarthritis of knee (813289843) Primary osteoarthritis of left knee (M17.12) Active confirmed Problem Dyslipidemia (611739199) Dyslipidemia (E78.5) Active confirmed Problem Neutropenia (279467635) Neutropenia, unspecified type (D70.9) Active confirmed Problem Neutropenia (949445360) Neutropenia, unspecified type (D70.9) Active confirmed Vital Signs Heart Rate 79 /min 12/30/2024 Blood pressure diastolic 68 mm Hg 12/30/2024 Height 71.50 in 12/30/2024 Blood pressure systolic 124 mm Hg 12/30/2024 Weight 205.6 lbs 12/30/2024 BMI 28.27 kg/m2 12/30/2024 Encounters Encounter Location Date Provider Diagnosis [facility] [address] [place], [place] [id number] 08/19/2024 R Gene Evgeny Essential hypertensi on I10 ; Dyslipidemia E78.5 and Fatigue R53.83 [facility] [address] [place], [place] [id number] 12/30/2024 R Gene Evgeny Primary osteoarthrit is of left knee M17.12 and BMI 28.0-28.9,adult Z68.28 [facility] [address] [place], [place] [id number] 08/28/2024 Kelechi [place] [facility] [address] [place], [place] [id number] 08/30/2024 Kelechi [place] [facility] [address] [place], [place] [id number] 09/30/2024 Kelechi [place] [facility] [address] [place], [place] [id number] 10/09/2024 Kelechi [place] [facility] [address] [place], [place] [id number] 11/13/2024 Kelechi [place] Essential hypertensi on I10 [facility] [address] [place], [place] [id number] 02/11/2025 Kelechi [place] [facility] [address] [place], [place] [id number] 07/07/2025 R Gene Evgeny Essential hypertensi on I10 ; Dyslipidemia E78.5 and Screening for prostate cancer Z12.5 Assessments Encounter Date Diagnosis (ICD Code) Assessment Notes Treatment Notes Treatment Clinical Notes Section Notes 11/13/2024 Essential hypertension (ICD-10 - I10) 12/30/2024 Primary osteoarthritis of left knee (ICD-10 - M17.12) Keep Ortho follow-up appointment as scheduled in 12/30/2024 BMI 28.0-28.9,adult (ICD-10 - Z68.28) 07/07/2025 Essential hypertension (ICD-10 - I10) 08/19/2024 Essential hypertension (ICD-10 - I10) 08/19/2024 Dyslipidemia (ICD-10 - E78.5) 08/19/2024 Fatigue (ICD-10 - R53.83) Awaiting results of testosterone 07/07/2025 Dyslipidemia (ICD-10 - E78.5) 07/07/2025 Screening for prostate cancer (ICD-10 - Z12.5) Plan Of Treatment Pending Test Test Name Order Date H-CBC 07/07/2025 H-Lipid Panel 07/07/2025 H-CMP 07/07/2025 H-PSA 07/07/2025 Next Appt Details Provider Name:Amy Vital, 08/20/2025 11:30:00 AM, [address] [facility], [address], [place], [place], [id number], Insurance Providers Payer Name Payer Address Payer Phone Subscriber Number Group Number Insured Name Patient Relationship to Insured Coverage Start Date Coverage End Date [employer] [facility] [address] [place] [address] [id number] Adeel Blackman Self - patient is the insured Medical (General) History Medical History History ICD Code HBP Surgical History Surgery Date(Month/Year) Appendectomy 2003 Right Elbow Surgery 10/2021 Hospitalization History Reason Date(Month/Year) see above
--- OUTSIDE RECORDS SUMMARY | 2025-08-19 07:49 | XMS_ITS | Clinical Summary ---
Author Organization [facility] Address [address] [place] [address] Care Team Providers Care Information Security Consultant Name Role Phone Steve Pepper MD Primary Care Provider Allergies No known active allergies Medications losartan (COZAAR) 25 MG tablet Take 25 mg by mouth Daily. Active methylPREDNISol one (MEDROL, FIDENCIO,) 4 MG tabletIndicatio ns:Viral illness Take as directed on package instructions. 1 each 05/20/2019 Active Social History Tobacco Use Types Packs/Day Years Used Date Smoking Tobacco: Never Smokeless Tobacco: Never Abuse Screen Answer Date Recorded Unsafe at Home or Work/School Not on file Feels Threatened by Someone? Not on file 08/2023 Does Anyone Keep You from Co ntacting Others or Doint Things Outside the Home? Not on file 06/14/2023 Physical Sign of Abuse Present Not on file 1 Housing Stability Answer Date Recorded Current Living Arrangements Not on file 06/03 Potentially Unsafe Housing Conditions Not on ed e 06/14/2023 Family and Community Support Answer Nilay e Recorded Help with Day-to-Day Activities Not on file 06/14/2023 Lonely or Isolated Not on file 06/14/2023 Employment Answer Date Recorded Do you want help finding or keeping work or a tracey b? Not on file 06/14/2023 Disabilities Answer Date Recorded Concentrating, Remembering, or Making Decisions Difficulty Not on file 06/14/2023 Doing Errands Independently Difficulty Not on fi le 06/14/2023 Education Answer Date Recorded Help with school or training? Not on file Preferred Language Not on file 06/14/2023 Sex and Gender Information Value Date Recorded Sex Assigned at Not on file Legal Sex Male 9:07 AM EDT Gender Identity Not on file Sexual Orientation Not on file Last Filed Vital Signs Vital Sign Reading Time Taken Comments Blood Pressure 124/89 05/20/2019 9:19 AM EDT Pulse 78 05/20/2019 9:19 AM EDT Temperature 36.8 C (98.2 F) 05/20/2019 9:19 AM EDT Respiratory Rate 16 05/20/2019 9:19 AM EDT Oxygen Saturation 99% 05/20/2019 9:19 AM EDT Inhaled Oxygen Concentration - - Weight 92.1 kg (203 lb) 05/20/2019 9:19 AM EDT Height 182 cm (5' 11.65 ) 05/20/2019 9:19 AM EDT Body Mass Index 27.8 05/20/2019 9:19 AM EDT Plan of Treatment Health Maintenance Due Date Last Done Comments ANNUAL PHYSICAL 1970 HEPATITIS C SCREENING 1972 TDAP/TD VACCINES (1 - Tdap) 1991 COLOGUARD 2017 COLON CANCER SCREENING 5 YEAR SIGMOIDOSCOPY 2017 COLONOSCOPY [address] CANCER SCREENING [address] COLONOGRAPHY 2017 FECAL OCCULT BLOOD TEST 2017 FIT Testing (1 year) 2017 Pneumococcal Vaccine 50+ (1 of 1 - PCV) 2022 ZOSTER VACCINE (1 of 2) 2022 INFLUENZA VACCINE 04/03/2025 06/06/2018 Insurance BLUE CROSS Care Teams Information Security Consultant Relationship Specialty Start Date End Date Steve Pepper MD [address] [facility] [address] [place] [address] PCP - General Family Medicine 05/20/19
[2025-08-19 08:39] LABS: Hematocrit 43.5 % (42.0-52.0); Hemoglobin 14.6 g/dL (14.1-18.0); Immature Granulocytes % 0.2 %; Mean Corpuscular HGB Conc 33.6 g/dL (31.8-35.4); Mean Corpuscular Hemoglobin 31.3 pg (27.0-31.2); Mean Corpuscular Volume 93.1 fl (80-94); Nucleated Red Blood Cells % 0 %; Platelet Count 263 K/mm3 (142-424); Red Blood Count 4.67 M/mm3 (4.60-6.20); Red Cell Distribution Width-SD 40.4 fL; White Blood Count 4.4 K/mm3 (4.8-10.8)
[2025-08-19 09:16] LABS: Chloride 105 mmol/L (98-107)
[2025-08-19 09:17] LABS: Albumin Level 4.6 g/dl (3.5-5.0); Potassium 4.3 mmoL/L (3.5-5.1); Sodium 137 mmol/L (136-145)
[2025-08-19 09:19] LABS: Blood Urea Nitrogen 22 mg/dl (9-20); Creatinine,Serum 1.20 mg/dl (0.66-1.25); Estimated Glomerular Filt Rate 63 ml/min (>60); GFR (African American) 77 ML/MIN (>60)
[2025-08-19 09:20] LABS: Alanine Aminotransferase 34 U/L (12-78); Albumin/Globulin Ratio 2.0 (1.1-1.8); Alkaline Phosphatase 39 U/L (38-126); Anion Gap 6.3 mEq/L (5-15); Aspartate Amino Transferase 35 U/L (17-59); Bilirubin,Total 0.5 mg/dl (0.2-1.3); Calcium 9.3 mg/dl (8.4-10.2); Carbon Dioxide 30 mmol/L (22.0-30.0); Cholesterol 206 mg/dl (140-200); Globulin 2.3 g/dL (1.3-3.2); Glucose 107 mg/dl (74-100); Total Protein,Serum 6.9 g/dl (6.3-8.2); Triglycerides 100 mg/dl (30-150)
[2025-08-19 09:47] LABS: HDL Cholesterol 70 mg/dl (40-60)
== END 2025-08-19 23:59 | disposition home or self-care (01) ==
LOC: LAB 07:47
PROVIDERS: PCP Family Medicine; Visit Provider Family Medicine
DX: E78.5 Hyperlipidemia, unspecified (principal); I10 Essential (primary) hypertension; Z12.5 Encounter for screening for malignant neoplasm of prostate
CPT/HCPCS: 36415; 80053; 80061; 85025; G0103